=== PATIENT | male | born 1955 | race Caucasian/White ===

== ENCOUNTER 2016-10-08 07:30 | Inpatient (IN) | payer BC, OTHER ==
--- NOTE | 2016-10-03 17:48 | Pre-op HX & Phy Repo 2 SIG ---
DATE OF ADMISSION: 10/08/2016 HISTORY OF PRESENT ILLNESS: The patient is a 61-year-old male in overall stable health with a malfunctioning Aleida ileostomy. The patient developed ulcerative colitis in 1976 while he was in the . In 1983 he underwent proctocolectomy with Aleida ileostomy using a left paramedian incision. In the past year the patient has developed retraction of the stoma, especially along the inferior edge and cannot maintain a seal. He must change his external appliance more than once every day. He has seen enterostomal therapy nurses, but the treatments have not been helpful and he has ongoing continuing blisters, continuous pain, and bleeding around the stoma. He is scheduled to undergo conversion of his malfunctioning conventional ileostomy to a Patiño continent ileostomy. OPERATIONS: In addition to the above, he has had three foot surgeries in the past three years, and in the past repair of lacerated kidney, shoulder surgery, and right arm torn biceps repair. MEDICATIONS: Percocet 10/325 mg t.i.d. for a 10-year history of low back pain. ALLERGIES TO MEDICATIONS: None. PHYSICAL EXAMINATION: The patient is 5 feet 9 inches and 190 pounds. He is arriving from out of town and will be examined upon arrival and dictated separately. IMPRESSION: 1. Malfunctioning Aleida ileostomy with retraction and severe skin irritation, intractable. 2. History of ulcerative colitis. 3. Status post proctocolectomy and ileostomy in 1983. 4. Chronic low back pain. PLAN: The patient will be admitted and undergo insertion of a dual lumen PICC line, bowel prep, concomitant intravenous hydration to prevent him from getting dehydrated during the bowel prep in view of his ileostomy status, and preoperative intravenous antibiotics. I have had a full discussion with the patient regarding the nature of the surgery, indications, alternatives including revision of his existing ileostomy, options, and risks. I have also discussed the need for catheter gastrostomy. I have discussed the general risks of surgery including bleeding, infection, injury to adjacent structures or organs, adhesions that could lead to bowel obstruction and the need for surgery, hernias, scarring, etc. I have discussed the specific risks of the Patiño type of Kock pouch continent ileostomy including the risk of slipped valve or pouch or valve fistula both of which could require major reoperation and revision including the possibility of needing revisions of the stoma, repair of parastomal hernia, etc. I have discussed the need for prophylaxis for deep vein thrombosis with sequential compression device stockings and preoperative subcutaneous heparin. I will have another complete discussion in person with the patient when he arrives from out of town. Raul Martinez M.D. DR: TIESHA JOB#: [id number] CC: KELLY
[~2016-10-08] VITALS: Ht 175.3 cm; Wt 86.2 kg
[2016-10-08 10:25] LABS: BASOPHILS % (AUTO) 0.6 % (0.0-2.0); EOSINOPHILS % (AUTO) 0.6 % (0.0-3.0); LYMPHOCYTES % (AUTO) 17.1 % (20.0-45.0); MEAN CORPUSCULAR HGB CONC 33.4 G/DL (32.0-36.0); MEAN CORPUSCULAR VOLUME 90 FL (80-99); MEAN PLATELET VOLUME 6.6 FL (6.5-10.1); MONOCYTES % (AUTO) 6.2 % (1.0-10.0); NEUTROPHILS % (AUTO) 75.5 % (45.0-75.0); PLATELET COUNT 244 K/UL (150-450); RED BLOOD COUNT 4.77 M/UL (4.70-6.10); RED CELL DISTRIBUTION WIDTH 11.6 % (11.6-14.8); WHITE BLOOD COUNT 4.7 K/UL (4.8-10.8)
[2016-10-08] MEDS ORDERED: Lidocaine 1% Plain 30 ml INJ ONE (10:30)
[2016-10-08] MEDS ORDERED: Heparin Sod 1000 units/ml 10ml IV ONE (10:30)
[2016-10-08] MEDS ORDERED: Sodium Bicarbonate 8.4% 50ml Inj IV ONE (10:30)
[2016-10-08 10:36] LABS: INR 1.1 (0.9-1.1); PROTHROMBIN TIME 10.8 SEC (9.30-11.50)
[2016-10-08 10:41] LABS: ALANINE AMINOTRANSFERASE 25 U/L (3-41); ALBUMIN/GLOBULIN RATIO 1.8 (1.0-2.7); ANION GAP 15 (5-15); ASPARTATE AMINO TRANSFERASE 27 U/L (5-40); CALCIUM 9.7 mg/dL (8.6-10.2); CARBON DIOXIDE 26 mEQ/L (20-30); CHLORIDE 97 mEQ/L (98-107); CREATININE 1.1 mg/dL (0.7-1.2); GLOMERULAR FILTRATION RATE > 60 mL/min (>60); HEMOLYSIS 2; POTASSIUM 4.4 mEQ/L (3.4-4.9); SODIUM 138 mEQ/L (135-145); TOTAL PROTEIN 7.3 g/dL (6.6-8.7)
[2016-10-08 11:00] VITALS: BP 112/64
[2016-10-08] MEDS ORDERED: Zolpidem 5mg tab ORAL PRN (11:00)
[2016-10-08] MEDS ORDERED: Heparin 2000 units/Ns 1000ml IV ONE (12:00)
--- NOTE | 2016-10-08 12:25 | Anethesia Preoperative Eval ---
Anesthesia Pre-op PMH/ROS General Date of Evaluation: October 08, 2016 Time of Evaluation: 11:48 Anesthesiologist: Maryam ASA Score: ASA 2 Mallampati Score Class I : Soft palate, uvula, fauces, pillars visible Class II: Soft palate, uvula, fauces visible Class III: Soft palate, base of uvula visible Class IV: Only hard plate visible Mallampati Classification: Class II Surgeon: Juan Diagnosis: Malfunctioning Booke Ileostomy Surgical Procedure: Revision to a Patiño Continent Ileostomy Anesthesia History: none Family History: no anesthesia problems Allergies: Coded Allergies: No Known Allergies (Unverified , 10/08/16) Medications: see eMAR Past Medical History Gastrointestinal/Genitourinary: Reports: other - Ulcerative Colitis Musculoskeletal/Integumentary: Reports: other - Back Pain PSxH Narrative: Aleida Ileostomy Anesthesia Pre-op Phys. Exam Physician Exam Last Vital Signs Date Time Temp Pulse Resp B/P Pulse Ox O2 Delivery O2 Flow Rate FiO2 10/08/16 11:00 97.5 53 20 112/64 98 Room Air Constitutional: NAD Neurologic: CN 2-12 intact Cardiovascular: RRR Respiratory: CTA Gastrointestinal: S/NT/ND Airway Exam Mallampati Score: Class II MO: full ROM: limited Teeth: intact Anesthesia Pre-op A/P Labs Hematology Test 10/08/16 10:10 White Blood Count 4.7 K/UL (4.8-10.8) L Red Blood Count 4.77 M/UL (4.70-6.10) Hemoglobin 14.3 G/DL (14.2-18.0) Hematocrit 42.8 % (42.0-52.0) Mean Corpuscular Volume 90 FL (80-99) Mean Corpuscular Hemoglobin 30.0 PG (27.0-31.0) Mean Corpuscular Hemoglobin Concent 33.4 G/DL (32.0-36.0) Red Cell Distribution Width 11.6 % (11.6-14.8) Platelet Count 244 K/UL (150-450) Mean Platelet Volume 6.6 FL (6.5-10.1) Neutrophils (%) (Auto) 75.5 % (45.0-75.0) H Lymphocytes (%) (Auto) 17.1 % (20.0-45.0) L Monocytes (%) (Auto) 6.2 % (1.0-10.0) Eosinophils (%) (Auto) 0.6 % (0.0-3.0) Basophils (%) (Auto) 0.6 % (0.0-2.0) Coagulation Test 10/08/16 10:10 Prothrombin Time 10.8 SEC (9.30-11.50) Prothromb Time International Ratio 1.1 (0.9-1.1) Activated Partial Thromboplast Time 26 SEC (23-33) Chemistry Test 10/08/16 10:10 Sodium Level 138 mEQ/L (135-145) Potassium Level 4.4 mEQ/L (3.4-4.9) Chloride Level 97 mEQ/L (98-107) L Carbon Dioxide Level 26 mEQ/L (20-30) Anion Gap 15 (5-15) Blood Urea Nitrogen 9 mg/dL (7-23) Creatinine 1.1 mg/dL (0.7-1.2) Estimat Glomerular Filtration Rate > 60 mL/min (>60) Glucose Level 111 mg/dL (74-106) H Calcium Level 9.7 mg/dL (8.6-10.2) Total Bilirubin 0.7 mg/dL (0.0-1.2) Aspartate Amino Transf (AST/SGOT) 27 U/L (5-40) Alanine Aminotransferase (ALT/SGPT) 25 U/L (3-41) Alkaline Phosphatase 67 U/L (40-129) Total Protein 7.3 g/dL (6.6-8.7) Albumin 4.7 g/dL (3.5-5.2) Globulin 2.6 g/dL Albumin/Globulin Ratio 1.8 (1.0-2.7) Risk Assessment & Plan Assessment: ASA 2 Plan: GA Status Change Before Surgery: No Pre-Antibiotics Drug: Maxime Mcnamara MD October 08, 2016 12:25
[2016-10-08] MEDS: Neomycin Sulfate 500mg Tab ORAL SCH ×3 (13:30→20:50)
--- NOTE | 2016-10-08 13:51 | Diagnostic Imaging Report ---
Indication: Shortness of breath Technique: One view of the chest Comparison: none Findings: Reticular opacities are seen at the right lung base. Linear opacities are seen in the right midlung, left lower lung. There is hyperinflation in the left upper lobe. Lungs and pleural spaces are otherwise clear. Heart size is normal Impression: Bilateral reticular and linear opacities, likely the chronic scarring. Possible hyperinflation of the left upper lobe, could indicate COPD changes No definite acute process
[2016-10-08 15:36] LABS: APPEARANCE,URINE CLEAR; KETONES,URINE NEGATIVE (NEGATIVE); LEUKOCYTE ESTERASE ,URINE NEGATIVE (NEGATIVE); NITRITE,URINE NEGATIVE (NEGATIVE); PH,URINE 6 (4.5-8.0); PROTEIN,URINE NEGATIVE (NEGATIVE); UROBILINOGEN,URINE NORMAL MG/DL (0.0-1.0)
--- NOTE | 2016-10-08 15:50 | Diagnostic Imaging Report ---
Indications: Needs long-term IV access Technique: Ultrasound confirms patent compressible left basilic vein. Total sterile technique, including sterile probe cover and sterile gel, hat, mask,, sterile gown, large sterile drape, and preparation with 2% chlorhexidine utilized. Local anesthesia with 1% lidocaine. Under real-time ultrasound guidance, puncture left basilic vein using 21-gauge needle, documented and archived, passage 0.018 guidewire under direct fluoroscopy, which was used to determine appropriate catheter length, exchange for 5 [place] peel-away sheath. 5 [place] Bard dual-lumen power PICC cut to 46 cm. It was inserted through the peel-away sheath. Peel-away sheath and guidewire removed. Catheter fixed to the skin. Both catheter ports aspirated and flushed. Patient tolerated procedure well, without immediate complication. Digital radiograph documents satisfactory catheter tip position, at the cavoatrial junction. Total fluoroscopy time 0.2 minutes. Total dose area product 12 dGycm2 Impression: Successful placement of left arm PICC under sonographic and fluoroscopic guidance, as described above.
[2016-10-08 16:00] VITALS: BP 119/66
[2016-10-08 16:01] LABS: BACTERIA,URINE FEW /HPF; RBC,URINE 0-2 /HPF (0 - 0); WBC,URINE 0-2 /HPF (0 - 0)
--- NOTE | 2016-10-08 16:47 | General Progress Note ---
Progress Note Progress Note H&P dictated. Full discussion with patient concerning his surgery including gastrostomy, indications, alternatives and risks; all questions answered. SASHA FRANCO October 08, 2016 16:47
[2016-10-08] MEDS: D5 1/2NS w/KCl 20mEq 1,000 ML IV SCH (17:38)
[2016-10-08 20:00] VITALS: BP 105/64
[2016-10-08] MEDS ORDERED: LORazepam 1mg tab ORAL PRN (21:15)
[2016-10-09] VITALS (19 sets, daily range): BP systolic 123–149; BP diastolic 70–95
--- NOTE | 2016-10-09 00:18 | History and Physical Report ---
DATE OF ADMISSION: 10/08/2016 [place] Please see previously dictated history. PHYSICAL EXAMINATION: GENERAL: The patient is well-developed and well-nourished, 5 feet 9 inches, 190 pounds with normal stable vital signs with mild bradycardia. HEENT: Within normal limits. LUNGS: Clear. HEART: Regular rhythm. BREASTS: Without masses. ABDOMEN: Soft and flat. There is a long left paramedian incision with scars from retention sutures. The stoma of his Aleida ileostomy is low in the right lower quadrant and completely retracted flush to the skin with surrounding chemical burn skin changes and condylomata-like skin lesions. RECTAL: Status post proctectomy. TESTES: Testes and scrotum wnl EXTREMITIES: Without edema. Pulses 2+ femoral to pedal bilaterally. No varicosities. NEUROLOGIC: Physiologic. IMPRESSION: 1. Malfunctioning Aleida ileostomy with retraction and intractable severe skin irritation. 2. History of ulcerative colitis. 3. Status post proctocolectomy and ileostomy in 1983. 4. Chronic low back pain. PLAN: The patient has been admitted and will undergo insertion of a dual lumen PICC line for stable venous access, and bowel prep. He will have concomitant intravenous hydration to prevent dehydration and he will have preoperative and perioperative antibiotics intravenously. LABORATORY STUDIES: normal protein and albumin. Normal electrolytes, BUN and creatinine. Normal liver function studies. Hemoglobin is 14.3 Normal INR and urinalysis. DISCUSSION: I had a full discussion with the patient and his regarding the nature of the surgery including conversion of his malfunctioning conventional ileostomy to a Patiño continent intestinal reservoir type of Kock pouch continent ileostomy as well as catheter gastrostomy including indications, alternatives, options including revision or relocation of his existing conventional ileostomy. I have discussed the general risks of surgery including bleeding, infection, injury to adjacent structures or organs, adhesions that could lead to bowel obstruction, scarring abnormalities, hernia, wound infections, abdominal infections, deep vein thrombosis despite maximal prophylaxis, etc. I have discussed the specific risks of the Patiño pouch operation including the potential need for revision for slipped valve or because of the fistula of pouch or valve or other difficulties with the pouch including difficulties with intubation or stoma issues. All questions have been answered. The patient understands. After much thought and discussion, the patient decided to undergo revision of his Aleida ileostomy, and to not undergo creation of a Patiño Continent Ileostomy. Risks of this procedure have been discussed including the potential for recurrent stoma difficulties, need for re-operation, etc. Raul Martinez M.D. DR: FREDDIE JOB#: [id number] CC: KELLY
[2016-10-09] MEDS: metroNIDAZOLE 500mg 100 ML IVPB SCH ×2 (00:23→05:40)
[2016-10-09] MEDS: Ampicillin/Sulbactam Sod 3 GM in NS 110 ML IVPB SCH ×2 (00:23→05:09)
[2016-10-09] MEDS ORDERED: traMADol 50mg tab ORAL PRN (01:00)
[2016-10-09] MEDS: D5 1/2NS w/KCl 20mEq 1,000 ML IV SCH (03:39)
[2016-10-09] MEDS ORDERED: Heparin 5000 units/ml inj SUBQ ONE (05:30)
[2016-10-09] MEDS ORDERED: Bacitracin 50000 Units Vial ONE (06:57)
--- NOTE | 2016-10-09 07:14 | Pre-Procedure Note/Attestation ---
Pre-Procedure Note/Attestation Complete Prior to Procedure Planned Procedure: not applicable Procedure Narrative: Patiño Continent Ileostomy; gastrostomy Indications for Procedure Pre-Operative Diagnosis: Malfunctioning Aleida ileostomy Attestation I attest that I discussed the nature of the procedure; its benefits; risks and complications; and alternatives (and the risks and benefits of such alternatives ), prior to the procedure, with the patient (or the patient's legal traveling representative). I attest that, if there was a reasonable possibility of needing a blood transfusion, the patient (or the patient's legal traveling representative) was given the [facility] standardized written summary, pursuant to the [place] Blood Safety Act ([place] Health and Safety Code # 1645, as amended). I attest that I re-evaluated the patient just prior to the surgery and that there has been no change in the patient's H&P, except as documented below: none SASHA FRANCO October 09, 2016 07:14
[2016-10-09] MEDS ORDERED: Neostigmine 1mg/ml 10ml Inj ONE (07:40)
[2016-10-09] MEDS ORDERED: Glycopyrrolate 0.2mg/ml 1ml Vial ONE (07:40)
[2016-10-09] MEDS: Neomycin Sulfate 500mg Tab ORAL SCH (07:40)
[2016-10-09] MEDS ORDERED: NS Irrig 1000ml IRRIG ONE (07:40)
[2016-10-09] MEDS ORDERED: Sterile Water Irrig 1000ml IRRIG ONE (07:40)
[2016-10-09] MEDS ORDERED: fentaNYL 250mcg/5ml ONE (07:40)
[2016-10-09] MEDS ORDERED: Dexamethasone 4mg/ml vial ONE (07:40)
[2016-10-09] MEDS ORDERED: Zemuron 50mg/5ml Inj IV ONE (07:40)
[2016-10-09] MEDS ORDERED: Propofol 10mg/ml 20ml IV ONE (07:40)
[2016-10-09] MEDS ORDERED: Midazolam 2mg/2ml Inj ONE (07:40)
[2016-10-09] MEDS ORDERED: NS Irrig 1000ml ONE (07:40)
[2016-10-09] MEDS ORDERED: Lidocaine 1% MPF 10mg/ml 5ml ONE (07:40)
[2016-10-09] MEDS ORDERED: Metoclopramide 10mg/2ml Inj ONE (07:40)
[2016-10-09] MEDS ORDERED: LR 1000ml ONE (07:45)
--- NOTE | 2016-10-09 08:13 | Cardiology Report ---
APPROVED REPORT EKG Measurement Heart [id number] Sinus bradycardia Otherwise normal ECG
[2016-10-09] MEDS ORDERED: LR 1000ml 1,000 ML IVLG SCH (08:46)
[2016-10-09] MEDS ORDERED: Metoclopramide 10mg/2ml Inj IVP PRN (09:00)
[2016-10-09] MEDS ORDERED: Midazolam 2mg/2ml Inj IVP PRN (09:00)
[2016-10-09] MEDS ORDERED: Ketorolac 30mg Inj IV PRN (09:00)
[2016-10-09] MEDS ORDERED: fentaNYL 100 mcg/2 mL IV PRN (09:00)
[2016-10-09] MEDS ORDERED: DiphenhydrAMINE 50mg/ml Inj IVP PRN ×2 (09:00→10:15)
[2016-10-09] MEDS ORDERED: Hydromorphone 0.5mg/0.5ml inj IVP PRN (09:00)
[2016-10-09] MEDS ORDERED: LORazepam Inj 2mg/ml 1ml IV PRN (09:00)
--- NOTE | 2016-10-09 10:02 | Brief Operative Note ---
Immediate Post Operative Note Operative Note Pre-op Diagnosis: Malfunctioning Aleida ileostomy Procedure: Laparotomy and revision of ileostomy Post-op Diagnosis: same Post-op Diagnosis: same as pre-op Findings: consistent w/pre-op dx studies Surgeon: kyle Commercial Leasing Manager: parvin Anesthesiologist: lani Anesthesia: general Specimen: yes - ileostomy and peristomal skin Complications: none Condition: stable Fluids: see anesthesia record Estimated Blood Loss: none Drains: none Implant(s) used?: No SASHA FRANCO October 09, 2016 10:02
--- NOTE | 2016-10-09 10:05 | General Progress Note ---
Progress Note Progress Note The patient decided overnight to not undergo creation of a Continent Ileostomy, but rather to undergo revision of his conventional ileostomy. Full discussion with the patient pre-operatively in pre-op area, and his decision is entirely reasonable. SASHA FRANCO October 09, 2016 10:05
--- NOTE | 2016-10-09 10:14 | Immediate Post-Op Evaluation ---
Immediate Post-Op Evalulation Immediate Post-Op Evalulation Procedure: Laparotomy, stoma revision Date of Evaluation: October 09, 2016 Time of Evaluation: 10:10 IV Fluids: 1.4L Blood Products: 0 Estimated Blood Loss: 100 Urinary Output: 300 Blood Pressure Systolic: 139 Blood Pressure Diastolic: 91 Pulse Rate: 105 Respiratory Rate: 18 O2 Sat by Pulse Oximetry: 99 Temperature (Fahrenheit): 98.1 Pain Score (1-10): 0 Nausea: No Vomiting: No Complications 00 Patient Status: awake, reacts, patent, none Hydration Status: adequate Drug: Unasyn and Flagyl Given Within 1 Hr of Incision: Yes Time Given: 07:00 JANINA RUBIO M.D. October 09, 2016 10:14
[2016-10-09] MEDS ORDERED: Acetaminophen 650mg/20.3ml ORAL PRN (10:15)
[2016-10-09] MEDS ORDERED: Rate Change PCA 1 Each MISC PRN (10:15)
[2016-10-09] MEDS ORDERED: Naloxone 0.4mg/ml Inj IVP PRN (10:15)
[2016-10-09] MEDS: PCA HYDROmorphone 1mg/ml 30 ML IV PRN (11:36)
[2016-10-09] MEDS: metroNIDAZOLE 500mg 100 ML IV SCH ×2 (12:52→17:24)
[2016-10-09] MEDS: Ampicillin/Sulbactam Sod 3 GM in NS 110 ML IV SCH ×2 (12:53→17:23)
[2016-10-09] MEDS: D5 1/4NS w/KCl 20mEq 1,000 ML IV SCH ×2 (15:01→20:26)
[2016-10-09] MEDS: PCA shift volume MISC SCH (19:11)
--- NOTE | 2016-10-09 20:38 | Operative Note - Dictated ---
DATE OF OPERATION: 10/09/2016 SURGEON: Raul Martinez M.D. HYBRID DERIVATIVES TRADER SURGEON: Joey Calix M.D. ANESTHESIOLOGIST: Dr. Ledesma. TYPE OF ANESTHESIA: General endotracheal. PREOPERATIVE DIAGNOSES: 1. Malfunctioning Aleida ileostomy with retraction and severe skin irritation 2. History of ulcerative colitis. 3. Status post proctocolectomy and ileostomy in 1983. POSTOPERATIVE DIAGNOSES: 1. Malfunctioning Aleida ileostomy with retraction and severe skin irritation 2. History of ulcerative colitis. 3. Status post proctocolectomy and ileostomy in 1983. OPERATION PERFORMED: Laparotomy with revision of ileostomy. DESCRIPTION OF PROCEDURE: The patient was taken to the operating room and under general endotracheal anesthesia with sequential compression device stockings and Ruby catheter in place and having received preoperative intravenous antibiotics and subcutaneous heparin, he was prepped and draped in the usual fashion. The retracted ileostomy in the right lower quadrant was covered with a Betadine soaked Ray-Gricelda. Previous left paramedian incision was reopened excising the skin scar and opening the lower two-thirds of a very long paramedian incision. Hemostasis was achieved with cautery. There was only one adhesion between a loop of small bowel and the anterior abdominal wall which was readily taken down. There were no other adhesions in the abdominal cavity except that the upper abdomen was sealed with adhesions. The peristomal skin had condylomata-like lesions circumferentially for about 1 cm away from the stoma and the stoma was retracted and there was a concavity. The ileostomy was dismantled bringing it down into the abdomen. Approximately 10 cm of ileum encompassing the old stoma was resected ligating the mesentery with 3-0 silk and dividing the bowel with a KIESHA 55. I considered relocating the stoma, but in view of the left paramedian incision the only option was to situate it somewhat higher in the right lower quadrant. I excised the circumferential rim of abnormal thickened skin and sent this to pathology along with the ileostomy segment. Hemostasis was achieved with cautery. Now it was apparent that the concavity was eliminated and so I narrowed the stoma site medial and laterally with interrupted 4-0 Monocryl subcuticular sutures leaving a good circular orifice to bring the bowel back up and mature the ileostomy at the same site. The mesentery was divided staying close to the bowel wall for approximately 5 cm from the staple line ligating with 2-0 and 3-0 Vicryl. Then the ileum was brought through the same abdominal wall hiatus and readily came through without difficulty orienting the mesentery cephalad. Anchoring sutures from the bowel to the peritoneum were taken with interrupted 3-0 Vicryl. The wound had been irrigated with triple antibiotic solution repeatedly as was the main incision protected with antibiotic soaked laps throughout the procedure. I decided to primarily mature the ileostomy before closure as there was no output during the manipulations. This was done using interrupted 3-0 chromic in typical Aleida fashion. Circumferential sutures were placed and a good projecting nipple bud of approximately 2.5cm was achieved. Digital palpation revealed a straight tract into the abdomen. Now gloves were changed and the paramedian incision irrigated with antibiotic solution again. the incision was closed in one layer with continuous #1 Prolene starting at both ends and inverting the knots. The skin was closed with allan and then an ileostomy appliance 1-3/4 inch was cut to fit over the stoma and applied with some tincture of benzoin on the skin using a standard ileostomy appliance. Dry sterile dressing was placed on the incision. Final sponge and needle counts were correct. The patient tolerated the procedure well and left the operating room in good condition. Raul Martinez M.D. DR: TIESHA JOB#: [id number] CC: KELLY
[2016-10-10] VITALS: BP 116/75
[2016-10-10] MEDS: LORazepam 1mg tab SL PRN ×3 (00:14→23:58)
[2016-10-10] MEDS: metroNIDAZOLE 500mg 100 ML IV SCH ×5 (00:17→23:52)
[2016-10-10] MEDS: Ampicillin/Sulbactam Sod 3 GM in NS 110 ML IV SCH ×5 (00:19→23:52)
[2016-10-10 04:00] VITALS: BP 118/74
[2016-10-10] MEDS: D5 1/4NS w/KCl 20mEq 1,000 ML IV SCH ×3 (04:00→19:48)
[2016-10-10 05:54] LABS: MEAN CORPUSCULAR HEMOGLOBIN 30.6 PG (27.0-31.0); MEAN CORPUSCULAR HGB CONC 34.4 G/DL (32.0-36.0); MEAN CORPUSCULAR VOLUME 89 FL (80-99); MEAN PLATELET VOLUME 5.9 FL (6.5-10.1); PLATELET COUNT 184 K/UL (150-450); RED BLOOD COUNT 4.13 M/UL (4.70-6.10); RED CELL DISTRIBUTION WIDTH 11.3 % (11.6-14.8); WHITE BLOOD COUNT 14.1 K/UL (4.8-10.8)
[2016-10-10 06:27] LABS: ANION GAP 15 (5-15); CARBON DIOXIDE 25 mEQ/L (20-30); CHLORIDE 100 mEQ/L (98-107); CREATININE 0.9 mg/dL (0.7-1.2); GLOMERULAR FILTRATION RATE > 60 mL/min (>60); HEMOLYSIS 4; SODIUM 140 mEQ/L (135-145)
[2016-10-10] MEDS: PCA shift volume MISC SCH ×2 (07:22→19:12)
[2016-10-10 08:00] VITALS: BP 107/63
[2016-10-10 08:01] LABS: BAND NEUTROPHILS % (MANUAL) 0 % (0-8); BASOPHILS % (MANUAL) 0 % (0-2); EOSINOPHILS % (MANUAL) 0 % (0-3); LYMPHOCYTES % (MANUAL) 3 % (20-45); NEUTROPHILS % (MANUAL) 93 % (45-75); PLATELET ESTIMATE ADEQUATE; PLATELET MORPHOLOGY NORMAL; TOTAL CELLS COUNTED 100
[2016-10-10] MEDS ORDERED: Ketorolac 30mg Inj IV STA (08:04)
--- NOTE | 2016-10-10 08:10 | General Progress Note ---
Progress Note Progress Note AVSS c/o pain despite Dilaudid [employer]ANT SUPERVISOR. Chest - decreased expansion Cor - reg rhythm Abdomen soft, flat, incision with bleeding lower pole but none this AM Ileostomy stoma pink Urine 1500cc Ileostomy 20cc enteric WBC 14,100 Hgb 12.7 BUN 9 Cr 0.9 Imp. Ileus Atelectasis Post-op pain Plan: Mobilize Add Toradol IV prn breakthrough pain f/u labs continue Ruby (pelvic dissection) Pulmonary toilet SASHA FRANCO October 10, 2016 08:10
--- NOTE | 2016-10-10 08:58 | 48 Hour Post Anesthesia Eval ---
Post Anesthesia Evaluation Procedure: Laparotomy, stoma revision Date of Evaluation: October 10, 2016 Time of Evaluation: 06:35 Blood Pressure Systolic: 118 0: 74 Pulse Rate: 74 Respiratory Rate: 18 Temperature (Fahrenheit): 98.1 O2 Sat by Pulse Oximetry: 98 Airway: patent Nausea: No Vomiting: No Pain Intensity: 2 Hydration Status: adequate Cardiopulmonary Status: at baseline Mental Status/LOC: patient returned to baseline Post-Anesthesia Complications: 0 Follow-up care needed: N/A - further care as per primary team JANINA RUBIO M.D. October 10, 2016 08:58
[2016-10-10] MEDS: PCA HYDROmorphone 1mg/ml 30 ML IV PRN (11:50)
[2016-10-10 12:12] VITALS: BP 125/80
[2016-10-10] MEDS: Ketorolac 30mg Inj IV PRN ×2 (14:38→22:39)
[2016-10-10 16:11] VITALS: BP 132/81
[2016-10-10 19:57] VITALS: BP 117/69
[2016-10-11] VITALS: BP 107/67
[2016-10-11 04:00] VITALS: BP 116/72
[2016-10-11] MEDS: D5 1/4NS w/KCl 20mEq 1,000 ML IV SCH ×3 (04:14→22:37)
[2016-10-11] MEDS: metroNIDAZOLE 500mg 100 ML IV SCH ×2 (05:14→12:26)
[2016-10-11] MEDS: Ampicillin/Sulbactam Sod 3 GM in NS 110 ML IV SCH ×2 (05:15→12:26)
[2016-10-11] MEDS: PCA shift volume MISC SCH ×2 (07:00→19:11)
[2016-10-11 07:26] LABS: BASOPHILS % (AUTO) 0.6 % (0.0-2.0); EOSINOPHILS % (AUTO) 1.7 % (0.0-3.0); LYMPHOCYTES % (AUTO) 17.1 % (20.0-45.0); MEAN CORPUSCULAR HEMOGLOBIN 30.8 PG (27.0-31.0); MEAN CORPUSCULAR HGB CONC 34.4 G/DL (32.0-36.0); MEAN CORPUSCULAR VOLUME 90 FL (80-99); MEAN PLATELET VOLUME 6.2 FL (6.5-10.1); MONOCYTES % (AUTO) 8.9 % (1.0-10.0); NEUTROPHILS % (AUTO) 71.8 % (45.0-75.0); PLATELET COUNT 149 K/UL (150-450); RED BLOOD COUNT 3.72 M/UL (4.70-6.10)
[2016-10-11 07:48] VITALS: BP 112/76
[2016-10-11 08:25] LABS: ANION GAP 14 (5-15); CALCIUM 8.7 mg/dL (8.6-10.2); CARBON DIOXIDE 26 mEQ/L (20-30); CHLORIDE 102 mEQ/L (98-107); CREATININE 0.9 mg/dL (0.7-1.2); GLOMERULAR FILTRATION RATE > 60 mL/min (>60); HEMOLYSIS 4; POTASSIUM 3.8 mEQ/L (3.4-4.9); SODIUM 142 mEQ/L (135-145)
[2016-10-11] MEDS ORDERED: Naloxone 0.4mg/ml Inj IVP PRN (09:00)
[2016-10-11] MEDS ORDERED: PCA HYDROmorphone 1mg/ml 30 ML IV PRN (09:00)
[2016-10-11] MEDS ORDERED: DiphenhydrAMINE 50mg/ml Inj IVP PRN (09:00)
[2016-10-11] MEDS ORDERED: Rate Change PCA 1 Each MISC PRN (09:00)
[2016-10-11] MEDS: Ketorolac 30mg Inj IV PRN (09:26)
[2016-10-11 12:00] VITALS: BP 117/74
--- NOTE | 2016-10-11 13:17 | General Progress Note ---
Progress Note Progress Note AVSS. Ambulated in room x 2 yesterday. Chest clear Abdomen soft, mild distention. Incision clean. Stoma pink well formed Urine 3225 Ileostomy 170 bilious WBC down 7000 Hgb down 11.5 Platelets 149,000 BMP - wnl Imp. Ileus Spontaneous diuresis Plan: NPO Continue Ruby until AM then D/C D/C antibiotics, decrease IV fluids f/u labs with iron panel.B12 and folate levels SASHA FRANCO October 11, 2016 13:17
[2016-10-11] MEDS ORDERED: NS 550ML IV ONE (15:11)
[2016-10-11] MEDS ORDERED: NS 275ml ONE (15:11)
[2016-10-11] MEDS ORDERED: Tubing IV Secondary IV ONE (15:11)
[2016-10-11 16:51] VITALS: BP 118/72
[2016-10-11 20:00] VITALS: BP 120/81
[2016-10-11] MEDS: LORazepam 1mg tab SL PRN (20:02)
[2016-10-11] MEDS ORDERED: LORazepam 1mg tab SL PRN (21:00)
[2016-10-12] VITALS: BP 121/74
[2016-10-12 04:00] VITALS: BP 127/85
[2016-10-12 06:04] LABS: EOSINOPHILS % (AUTO) 4.1 % (0.0-3.0); LYMPHOCYTES % (AUTO) 16.9 % (20.0-45.0); MEAN CORPUSCULAR HGB CONC 34.9 G/DL (32.0-36.0); MEAN CORPUSCULAR VOLUME 89 FL (80-99); MEAN PLATELET VOLUME 5.8 FL (6.5-10.1); MONOCYTES % (AUTO) 9.1 % (1.0-10.0); NEUTROPHILS % (AUTO) 68.8 % (45.0-75.0); PLATELET COUNT 160 K/UL (150-450); RED BLOOD COUNT 4.07 M/UL (4.70-6.10)
[2016-10-12 06:13] LABS: ANION GAP 12 (5-15); CALCIUM 9.1 mg/dL (8.6-10.2); CARBON DIOXIDE 28 mEQ/L (20-30); CHLORIDE 103 mEQ/L (98-107); CREATININE 0.9 mg/dL (0.7-1.2); GLOMERULAR FILTRATION RATE > 60 mL/min (>60); HEMOLYSIS 7; SODIUM 143 mEQ/L (135-145)
[2016-10-12 06:14] LABS: HEMOLYSIS 8; IRON 58 ug/dL (59-158); TOTAL IRON BINDING CAPACITY 225 ug/dL (250-400)
[2016-10-12] MEDS: PCA shift volume MISC SCH ×2 (07:29→19:08)
[2016-10-12 08:00] VITALS: BP 110/77
[2016-10-12] MEDS ORDERED: Warfarin Sodium 7.5mg ORAL SCH (08:00)
[2016-10-12] MEDS: D5 1/4NS w/KCl 20mEq 1,000 ML IV SCH ×2 (08:10→18:00)
[2016-10-12] MEDS: Ketorolac 30mg Inj IV PRN (08:12)
--- NOTE | 2016-10-12 11:42 | General Progress Note ---
Progress Note Progress Note AVSS Ambulating well and voiding without Ruby removed this AM. Hungry. Still with incisional pain and using SURGICAL INSTRUMENT TECHNICIAN Abdomen mildly distende, soft, incision clean, stoma pink Urine 4900 Ileostomy 85cc WBC 7000 Hgb up 12.6 Platelets up 160,000 BMP - wnl Iron 58 (59-158) B12 level OK Imp. Ileus Iron deficiency Plan: NPO Venofer 100mg x 5 SASHA FRANCO October 12, 2016 11:42
[2016-10-12 12:00] VITALS: BP 123/76
[2016-10-12 16:00] VITALS: BP 110/68
[2016-10-12 20:00] VITALS: BP 127/81
[2016-10-12] MEDS: Iron Sucrose 100 MG in NS 55 ML IVPB SCH (21:20)
[2016-10-13] VITALS: BP 119/76
[2016-10-13] MEDS: D5 1/4NS w/KCl 20mEq 1,000 ML IV SCH ×2 (03:31→13:00)
[2016-10-13 04:00] VITALS: BP 119/75
[2016-10-13] MEDS: PCA shift volume MISC SCH (07:00)
[2016-10-13 08:00] VITALS: BP 111/59
--- NOTE | 2016-10-13 09:27 | General Progress Note ---
Progress Note Progress Note AVSS Abdomen soft, incision clean. Ileostomy appliance changed - mild soft tissue swelling, incision clean, stoma well formed and pink with mild edema Urine 2200 Ileo 195 Imp. Resolving ileus Plan: Clear liquid diet D/C VP OF MARKETING - start Percocet 10/325 q4h prn (chronic use pre-admission 2- 3xdaily for low back pain D/C IV fluids when tolerating sufficient po intake SASHA FRANCO October 13, 2016 09:27
[2016-10-13 12:00] VITALS: BP 102/54
[2016-10-13] MEDS: Ketorolac 30mg Inj IV PRN ×2 (15:08→22:12)
[2016-10-13 16:00] VITALS: BP 102/53
[2016-10-13] MEDS: LORazepam 1mg tab SL PRN (18:12)
[2016-10-13] MEDS ORDERED: Ketorolac 30mg Inj IV SCH (18:30)
[2016-10-13 20:00] VITALS: BP 100/71
[2016-10-13] MEDS ORDERED: ALPRAZolam 0.5mg tab ORAL PRN (20:00)
[2016-10-13] MEDS: Iron Sucrose 100 MG in NS 55 ML IVPB SCH ×2 (21:00→21:33)
[2016-10-13] MEDS: Zolpidem 5mg tab ORAL SCH ×2 (21:00→21:33)
[2016-10-14] VITALS: BP 100/71
[2016-10-14 04:00] VITALS: BP 107/66
[2016-10-14] MEDS: Ketorolac 30mg Inj IV PRN ×3 (05:08→18:16)
[2016-10-14 08:00] VITALS: BP 93/64
[2016-10-14 12:00] VITALS: BP 99/55
--- NOTE | 2016-10-14 13:31 | General Progress Note ---
Progress Note Progress Note AVSS Still with considerable incisional pain requiring IV Toradol and po Percocet 10/325 Tolerated clear liquids well Abdomen soft, non-distended, incision with mild ecchymosis, ecchymosis lateral to ileostomy in RLQ. Urine 1200 Ileostomy 180 Imp. Slowly improving Plan: BCIR low residue diet d/c IV fluids labs in AM If severe pain persists with need CT scan abd+pelvis SASHA FRANCO October 14, 2016 13:31
[2016-10-14 16:00] VITALS: BP 97/58
[2016-10-14] MEDS ORDERED: Tubing IV Secondary IV ONE (16:08)
[2016-10-14 20:00] VITALS: BP 109/65
[2016-10-14] MEDS: Zolpidem 5mg tab ORAL SCH ×2 (21:30→23:49)
[2016-10-14] MEDS: Iron Sucrose 100 MG in NS 55 ML IVPB SCH (21:44)
[2016-10-15 00:28] VITALS: BP 130/62
[2016-10-15 04:00] VITALS: BP 94/59
[2016-10-15] MEDS: Ketorolac 30mg Inj IV PRN (06:34)
[2016-10-15 07:54] LABS: BASOPHILS % (AUTO) 0.7 % (0.0-2.0); EOSINOPHILS % (AUTO) 4.4 % (0.0-3.0); LYMPHOCYTES % (AUTO) 14.2 % (20.0-45.0); MEAN CORPUSCULAR HEMOGLOBIN 30.9 PG (27.0-31.0); MEAN CORPUSCULAR VOLUME 91 FL (80-99); MEAN PLATELET VOLUME 6.1 FL (6.5-10.1); MONOCYTES % (AUTO) 8.5 % (1.0-10.0); NEUTROPHILS % (AUTO) 72.2 % (45.0-75.0); PLATELET COUNT 172 K/UL (150-450); RED BLOOD COUNT 4.02 M/UL (4.70-6.10); RED CELL DISTRIBUTION WIDTH 11.5 % (11.6-14.8); WHITE BLOOD COUNT 6.3 K/UL (4.8-10.8)
[2016-10-15 08:00] VITALS: BP 107/68
[2016-10-15 08:20] LABS: ANION GAP 14 (5-15); CALCIUM 9.2 mg/dL (8.6-10.2); CARBON DIOXIDE 25 mEQ/L (20-30); CHLORIDE 102 mEQ/L (98-107); CREATININE 1.1 mg/dL (0.7-1.2); GLOMERULAR FILTRATION RATE > 60 mL/min (>60); HEMOLYSIS 7; POTASSIUM 3.8 mEQ/L (3.4-4.9); SODIUM 141 mEQ/L (135-145)
--- NOTE | 2016-10-15 08:41 | General Progress Note ---
Progress Note Progress Note AVSS Pain is improving but received Toradol IV q6h + Percocet. Eating 70% Abdomen soft, flat, incision clean, ecchymosis resolving Stoma pink; peristomal lateral ecchymosis is stable WBC 6300 Hgb 12.4 Platelets up 172,000 Cr up 1.1 Urine 400++?? Ileostomy 210 Imp. Slowly resolving ileus and incisional pain Mild hemoconcentration Iron deficiency, severe Plan; D/C IV Toradol Monitor I&O If stable and managing without parenteral analgesics today will discharge in AM Increase po fluid intake continue IV SASHA Burgos October 15, 2016 08:41
[2016-10-15 12:00] VITALS: BP 100/61
[2016-10-15 16:00] VITALS: BP 104/68
[2016-10-15 20:11] VITALS: BP 106/67
[2016-10-15] MEDS: Iron Sucrose 100 MG in NS 55 ML IVPB SCH (20:58)
[2016-10-16] VITALS: BP 102/64
[2016-10-16] MEDS ORDERED: Zolpidem 5mg tab ORAL SCH (00:11)
[2016-10-16 04:00] VITALS: BP 88/55
--- NOTE | 2016-10-16 07:45 | General Progress Note ---
Progress Note Progress Note doing well. Eating okay and ambulating. Pain improved. Abdomen soft, flat. Malcolm removed and steristrips applied Stoma stable Imp. doing well Plan: Remove PIC line Discharge f/u office 1 week and prn Full instructions/limitations/diet/activity discussed SASHA FRANCO October 16, 2016 07:45
[2016-10-16] MEDS ORDERED: PERCOCET 10-321 EAC1 PO (07:52)
[2016-10-16 08:00] VITALS: BP 99/67
--- NOTE | 2016-10-18 12:51 | Discharge Summary ---
Discharge Summary Hospital Course Date of Admission October 08, 2016 at 08:55 Date of Discharge October 16, 2016 at 10:15 Admitting Diagnosis HPI Xiang Olson is a 61 year old male who was admitted on October 08, 2016 at 08:55 for Malfuntioning Aleida Ileostomy Hospital Course The patient is a 61-year-old male in overall stable health with a malfunctioning Aleida ileostomy. The patient developed ulcerative colitis in 1976 while he was in the . In 1983 he underwent proctocolectomy with Aleida ileostomy using a left paramedian incision. In the past year the patient has developed retraction of the stoma, especially along the inferior edge and cannot maintain a seal. He must change his external appliance more than once every day. He has seen enterostomal therapy nurses, but the treatments have not been helpful and he has ongoing continuing blisters, continuous pain, and bleeding around the stoma.The patient was admitted and had a PICC line inserted for stable venous access, and bowel prep. He was given intravenous hydration with preoperative and perioperative antibiotics intravenously. On October 09, 2016 he underwent Laparotomy with revision of ileostomy. Post-operatively, he was placed on NPO and was given MECHANICAL MAINTENANCE Dilaudid with IV Toradol for breakthrough pain. He was encouraged ambulation. Diet was advanced and IV pain medication was discontinued with PO percocet for pain. He was tolerating BCIR diet, IV Fluids was discontinued. He had better pain control and on the day of discharge: Was doing well. Eating okay and ambulating. Pain improved. Abdomen soft, flat. [place] removed and steristrips applied Stoma stable Imp. doing well Plan: Remove PICC line Discharge f/u office 1 week and prn Full instructions/limitations/diet/activity discussed PREOPERATIVE DIAGNOSES: 1. Malfunctioning Aleida ileostomy with retraction and severe skin irritation 2. History of ulcerative colitis. 3. Status post proctocolectomy and ileostomy in 1983. POSTOPERATIVE DIAGNOSES: 1. Malfunctioning Aleida ileostomy with retraction and severe skin irritation 2. History of ulcerative colitis. 3. Status post proctocolectomy and ileostomy in 1983. ----I have been assigned to complete a discharge summary on this account, I was not involved in the patient's management.---AUSTIN Mejia. Discharge Discharge Disposition Patient was discharged to Home () Discharge Diagnoses: Rani Zafar NP October 18, 2016 12:51
== END 2016-10-16 10:15 | disposition home or self-care (01) | DRG 348 ==
LOC: 4E 08:55 → 3E 10-09 08:16
PROC: 02HV33Z Insertion of Infusion Device into Superior Vena Cava, Percutaneous Approach (ICD-10-PCS; principal; 2016-10-08)
PROC: 0WQFXZ2 Repair Abdominal Wall, Stoma, External Approach (ICD-10-PCS; 2016-10-09)
DX: K94.13 Enterostomy malfunction (principal); K56.7 Ileus, unspecified; G89.29 Other chronic pain; Y83.3 Surgical operation with formation of external stoma as the cause of abnormal reaction of the patient, or of later complication, without mention of misadventure at the time of the procedure; Z87.19 Personal history of other diseases of the digestive system; M54.5 Low back pain; E61.1 Iron deficiency
CPT/HCPCS: 36415; 36569; 71010; 76937; 80048; 80053; 81001; 82607; 82746; 83540; 83550; 85007; 85025; 85610; 85730; 86850; 86900; 86901; 93005; 94003; 94150; J2250; J2405; J2710; J2765